=== PATIENT | male | born 1960 | race Caucasian/White ===

== ENCOUNTER 2018-08-12 05:24 | Emergency (ER) | payer MEDICARE, OTHER ==
[2018-08-12] MEDS ORDERED: Aspirin 325 mg EC Tablets PO STA (05:45)
--- NOTE | 2018-08-12 05:51 | C.PDOC ---
History Of Present Illness 58 year old male presents with PMHx of HTN to the ED c/o sudden onset mid sternal chest pain for the past 5 hours, patient states pain started while watching TV. Patient reports his pain is non exertional associated with SOB. Patient still smokes. Patient also c/o exacerbation of his acid reflux. Patient states ambulance initially took him to [facility], as per Patient "I was never evaluated there left and came here". Patient denies fever, chills, headache, visual changes, nausea, vomit, dizziness, rash, weakness, numbness. Time Seen by Provider: 08/12/18 05:40 Chief Complaint (Nursing): Shortness Of Breath History Per: Patient History/Exam Limitations: no limitations Onset/Duration Of Symptoms: Hrs (5) Current Symptoms Are (Timing): Still Present Reports Recently: Seen In ED ([facility] today left) Recent travel outside of the [place]: No Additional History Per: Patient Past Medical History Reviewed: Historical Data, Nursing Documentation, Vital Signs Vital Signs: Last Vital Signs Temp 98 F 08/12/18 05:36 Pulse 79 08/12/18 05:36 Resp 20 08/12/18 05:36 BP 154/79 H 08/12/18 05:36 Pulse Ox 97 08/12/18 05:36 - Medical History PMH: Asthma, HTN, Hypercholesterolemia Denies: Diabetes, Hepatitis, HIV, Seizures, Sexually Transmitted Disease Surgical History: No Surg Hx - [facility] Procedures DETOXIFICATION SERVICES FOR SUBSTANCE ABUSE TREATMENT (12/16/15) Family History: States: Unknown Family Hx - Social History Hx Tobacco Use: Yes Hx Alcohol Use: No Hx Substance Use: Yes - Immunization History Hx Tetanus Toxoid Vaccination: Yes Hx Influenza Vaccination: Yes Hx Pneumococcal Vaccination: No Review Of Systems Constitutional: Negative for: Fever, Chills Eyes: Negative for: Vision Change Cardiovascular: Positive for: Chest Pain. Negative for: Palpitations Respiratory: Positive for: Shortness of Breath. Negative for: Cough Gastrointestinal: Negative for: Nausea, Vomiting, Abdominal Pain, Diarrhea Skin: Negative for: Rash Neurological: Negative for: Weakness, Numbness, Headache, Dizziness Physical Exam - Physical Exam Appears: Non-toxic, No Acute Distress Skin: Normal Color, Warm, Dry Head: Atraumatic, Normacephalic Eye(s): bilateral: Normal Inspection Oral Mucosa: Moist Neck: Normal ROM, Supple Chest: Symmetrical, No Tenderness Cardiovascular: Rhythm Regular Respiratory: Normal Breath Sounds, No Rales, No Rhonchi, No Wheezing Gastrointestinal/Abdominal: Soft, No Tenderness, No Guarding, No Rebound Extremity: Bilateral: Atraumatic, Normal Color And Temperature, Normal ROM Neurological/Psych: Oriented x3, Normal Speech, Normal Cognition Gait: Steady ED Course And Treatment - Laboratory Results Result Diagrams: 08/12/18 05:51 08/12/18 05:51 ECG: Interpreted By Me, Viewed By Me ECG Rhythm: Sinus Rhythm Interpretation Of ECG: Normal axis, normal intervals Rate From EC (BPM) O2 Sat by Pulse Oximetry: 97 (ON RA) Pulse Ox Interpretation: Normal Reevaluation Time: 06:40 Reassessment Condition: Improved (PARTIAL IMPROVE S/P NG X 1.) - Physician Consult Information Time Consulting Physician Contacted: 06:40 Physician Contacted: Stevan Brock Outcome Of Conversation: C/F PMD WILL ADMIT Medical Decision Making Medical Decision Making: Plan: * EKG * Labs * Aspirin 325 mg PO * Morphine 2 mg IVP * Nitroglycerin 0.4 mg SL * BRANDI rule out Disposition Counseled Patient/Family Regarding: Studies Performed, Diagnosis - Disposition Disposition: HOSPITALIZED Disposition Time: 06:40 Condition: STABLE Forms: [facility] (Haitian) - POA Present On Arrival: None - Clinical Impression Clinical Impression: Chest pain - Scribe Statement The provider has reviewed the documentation as recorded by the Scribe Avelino Cash All medical record entries made by the Scribe were at my direction and personally dictated by me. I have reviewed the chart and agree that the record accurately reflects my personal performance of the history, physical exam, medical decision making, and the department course for this patient. I have also personally directed, reviewed, and agree with the discharge instructions and disposition.
[2018-08-12 05:53] LABS: BASO # 0.1 K/uL (0.0-0.2); BASO % 1.1 % (0.0-2.0); EOS # 0.4 K/uL (0.0-0.7); EOS % 7.4 % (0.0-4.0); LYMPH # 2.4 K/uL (1.0-4.3); LYMPH % 45.2 % (20.0-40.0); MONO # 0.3 K/uL (0.0-0.8); MONO % 6.3 % (0.0-10.0); NEUT # 2.1 K/uL (1.8-7.0); NRBC % 0.1 % (0.0-2.0); RBC 4.12 Mil/uL (4.40-5.90); WHITE BLOOD COUNT 5.3 K/uL (4.8-10.8)
[2018-08-12 06:21] LABS: ALB/GLOB RATIO 1.3 (1.0-2.1); ALBUMIN 4.5 g/dL (3.5-5.0); ALT/SGPT 24 U/L (21-72); AST/SGOT 29 U/L (17-59); BLOOD UREA NITROGEN 9 mg/dL (9-20); CALCIUM 8.8 mg/dl (8.6-10.4); GFR NON-AFRICAN AMERICAN > 60
[2018-08-12 07:45] VITALS: RESP 18
--- NOTE | 2018-08-12 08:31 | CP.PCM.HP ---
History of Present Illness - History of Present Illness History of Present Illness: Mr. Adame is a 58 year old male with a PMHx of hypertension, HSV I, and GERD who presents with complaints of 10/10, non-radiating, left-sided sharp chest pain that started at 2AM this morning while watching television and eating a h amburger. Associated with the chest pain is shortness of breath. He denies any provocating or relieving factors. He denies using any modalities to treat the pain. Patient does admit to snorting heroin yesterday. His pain was relieved after ASA, Morphine and Nitro in the ED. He denies Fevers, chills, nausea, vomiting, abdominal pain, or changes in bowel habits. Patient does admit to dysuria for 1 week. ROS: As stated above PMHx: As stated above PSHx: B/L inguinal hernia repair Allergies: NKDA SocialHx: tobacco use for 8 years, 6 cigarettes a day, Denies EtoH Use, Admitted to Heroin use FamHx: Unknown Meds: Valtrex (Unknown Dose), Norvasc 10 Daily, Strovite PMD: Dr. Patrick. Present on Admission - Present on Admission Any Indicators Present on Admission: No Review of Systems - Review of Systems Review of Systems: As per HPI Past Patient History - Infectious Disease Hx of Infectious Diseases: None - Past Social History Smoking Status: Heavy Smoker > 10 Cigarettes Daily - CARDIAC Hx Hypercholesterolemia: Yes Hx Hypertension: Yes - PULMONARY Hx Asthma: Yes - NEUROLOGICAL Hx Seizures: No - HEMATOLOGICAL/ONCOLOGICAL Hx Human Immunodeficiency Virus (HIV): No - MUSCULOSKELETAL/RHEUMATOLOGICAL Hx Musculoskeletal Disorders: Yes Hx Back Pain: Yes Hx Falls: No - GENITOURINARY/GYNECOLOGICAL Hx Sexually Transmitted Disorders: No - PSYCHIATRIC Hx Substance Use: Yes - SURGICAL HISTORY Hx Surgeries: No - ANESTHESIA Hx Anesthesia: No Meds Allergies/Adverse Reactions: Allergies Allergy/AdvReac Type Severity Reaction Status Date / Time No Known Allergies Allergy Verified 08/12/18 05:40 Physical Exam - Constitutional Appears: Well, Non-toxic, No Acute Distress - Head Exam Head Exam: ATRAUMATIC, NORMAL INSPECTION, NORMOCEPHALIC - Eye Exam Eye Exam: EOMI, Normal appearance - ENT Exam ENT Exam: Mucous Membranes Moist - Neck Exam Neck exam: Positive for: Normal Inspection. Negative for: Tenderness, Thyromegaly - Respiratory Exam Respiratory Exam: Clear to Auscultation Bilateral. absent: Accessory Muscle Use - Cardiovascular Exam Cardiovascular Exam: Bradycardia, REGULAR RHYTHM, +S1, +S2 - GI/Abdominal Exam GI & Abdominal Exam: Normal Bowel Sounds, Soft. absent: Tenderness - Extremities Exam Extremities exam: Positive for: normal capillary refill. Negative for: pedal edema - Neurological Exam Neurological exam: Alert, Oriented x3 - Psychiatric Exam Psychiatric exam: Normal Affect, Normal Mood Results - Vital Signs Recent Vital Signs: Last Vital Signs Temp 98 F 08/12/18 07:15 Pulse 52 L 08/12/18 07:15 Resp 18 08/12/18 07:15 BP 126/73 08/12/18 07:15 Pulse Ox 98 08/12/18 07:15 - Labs Result Diagrams: 08/12/18 05:51 08/12/18 05:51 Labs: Laboratory Results - last 24 hr 08/12/18 08/12/18 05:51 05:51 WBC 5.3 RBC 4.12 L Hgb 14.0 Hct 40.0 MCV 97.0 H MCH 34.0 H MCHC 35.0 RDW 13.0 Plt Count 258 MPV 7.0 L Neut % (Auto) 40.0 L Lymph % (Auto) 45.2 H Rolette % (Auto) 6.3 Eos % (Auto) 7.4 H Baso % (Auto) 1.1 Neut # (Auto) 2.1 Lymph # (Auto) 2.4 Rolette # (Auto) 0.3 Eos # (Auto) 0.4 Baso # (Auto) 0.1 Sodium 140 Potassium 4.1 Chloride 102 Carbon Dioxide 30 Anion Gap 13 BUN 9 Creatinine 0.8 Est GFR ( Amer) > 60 Est GFR (Non-Af Amer) > 60 Random Glucose 119 H Calcium 8.8 Total Bilirubin 0.7 AST 29 ALT 24 Alkaline Phosphatase 105 Troponin I < 0.0120 Total Protein 7.8 Albumin 4.5 Globulin 3.3 Albumin/Globulin Ratio 1.3 Assessment & Plan - Assessment and Plan (Free Text) Assessment: 58 year old male with a PMHx of hypertension, HSV I, and GERD admitted for chest pain r/o ACS. Plan: Chest Pain, R/O ACS -Serial BRANDI, Serial EKG -ECHO -Cardiology Consult -Lipid Panel, HgBA1C, Thyroid Studies. Proph Lovenox HHD.
[2018-08-12 10:19] VITALS: BP 128/81; PULSE 53; TEMP 98.1; O2SAT 100
[2018-08-12 10:26] LABS: BARBITURATES, UR NEGATIVE (NEGATIVE); BENZODIAZEPINES, UR NEGATIVE (NEGATIVE); PHENCYCLIDINE, UR NEGATIVE (NEGATIVE)
[2018-08-12 10:30] LABS: SQUAMOUS EPITHIAL < 1 /hpf (0-5); URINE BILIRUBIN NEGATIVE (NEGATIVE); URINE BLOOD NEGATIVE (NEGATIVE); URINE CLARITY Clear (Clear); URINE COLOR Yellow (YELLOW); URINE GLUCOSE (UA) NORMAL (Normal); URINE LEUKOCYTE ESTERASE NEG Leu/uL (Negative); URINE PROTEIN NEGATIVE (NEGATIVE); URINE UROBILINOGEN NORMAL mg/dL (0.2-1.0)
[2018-08-12 10:36] LABS: INR 1.1; PROTHROMBIN TIME 11.8 SECONDS (9.7-12.2)
[2018-08-12 11:04] LABS: OPIATES, UR POSITIVE (NEGATIVE)
--- NOTE | 2018-08-12 12:55 | CP.PCM.DIS ---
Provider - Provider Date of Admission: 08/12/18 Consults: Cardio - Grandhi Time Spent in preparation of Discharge (in minutes): 33 Hospital Course - Lab Results Lab Results: Most Recent Lab Values WBC 5.3 K/uL (4.8-10.8) 08/12/18 05:51 RBC 4.12 Mil/uL (4.40-5.90) L 08/12/18 05:51 Hgb 14.0 g/dL (12.0-18.0) 08/12/18 05:51 Hct 40.0 % (35.0-51.0) 08/12/18 05:51 MCV 97.0 fL (80.0-94.0) H 08/12/18 05:51 MCH 34.0 pg (27.0-31.0) H 08/12/18 05:51 MCHC 35.0 g/dL (33.0-37.0) 08/12/18 05:51 RDW 13.0 % (11.5-14.5) 08/12/18 05:51 Plt Count 258 K/uL (130-400) 08/12/18 05:51 MPV 7.0 fL (7.2-11.7) L 08/12/18 05:51 Neut % (Auto) 40.0 % (50.0-75.0) L 08/12/18 05:51 Lymph % (Auto) 45.2 % (20.0-40.0) H 08/12/18 05:51 Garvin % (Auto) 6.3 % (0.0-10.0) 08/12/18 05:51 Eos % (Auto) 7.4 % (0.0-4.0) H 08/12/18 05:51 Baso % (Auto) 1.1 % (0.0-2.0) 08/12/18 05:51 Neut # (Auto) 2.1 K/uL (1.8-7.0) 08/12/18 05:51 Lymph # (Auto) 2.4 K/uL (1.0-4.3) 08/12/18 05:51 Garvin # (Auto) 0.3 K/uL (0.0-0.8) 08/12/18 05:51 Eos # (Auto) 0.4 K/uL (0.0-0.7) 08/12/18 05:51 Baso # (Auto) 0.1 K/uL (0.0-0.2) 08/12/18 05:51 PT 11.8 SECONDS (9.7-12.2) 08/12/18 10:18 INR 1.1 08/12/18 10:18 APTT 28 SECONDS (21-34) 08/12/18 10:18 Sodium 140 mmol/L (132-148) 08/12/18 05:51 Potassium 4.1 mmol/L (3.6-5.2) 08/12/18 05:51 Chloride 102 mmol/L (98-107) 08/12/18 05:51 Carbon Dioxide 30 mmol/L (22-30) 08/12/18 05:51 Anion Gap 13 (10-20) 08/12/18 05:51 BUN 9 mg/dL (9-20) 08/12/18 05:51 Creatinine 0.8 mg/dL (0.8-1.5) 08/12/18 05:51 Est GFR ( Amer) > 60 08/12/18 05:51 Est GFR (Non-Af Amer) > 60 08/12/18 05:51 Random Glucose 119 mg/dL (75-110) H 08/12/18 05:51 Hemoglobin A1c 4.8 % (4.2-6.5) 08/12/18 08:43 Calcium 8.8 mg/dl (8.6-10.4) 08/12/18 05:51 Phosphorus 4.5 mg/dL (2.5-4.5) 08/12/18 08:43 Magnesium 2.0 mg/dL (1.6-2.3) 08/12/18 08:43 Total Bilirubin 0.7 mg/dL (0.2-1.3) 08/12/18 05:51 AST 29 U/L (17-59) 08/12/18 05:51 ALT 24 U/L (21-72) 08/12/18 05:51 Alkaline Phosphatase 105 U/L (38-126) 08/12/18 05:51 Troponin I < 0.0120 ng/mL (0.00-0.120) 08/12/18 05:51 Total Protein 7.8 g/dL (6.3-8.3) 08/12/18 05:51 Albumin 4.5 g/dL (3.5-5.0) 08/12/18 05:51 Globulin 3.3 gm/dL (2.2-3.9) 08/12/18 05:51 Albumin/Globulin Ratio 1.3 (1.0-2.1) 08/12/18 05:51 Triglycerides 99 mg/dL (0-149) 08/12/18 08:43 Cholesterol 199 mg/dL (0-199) 08/12/18 08:43 LDL Cholesterol Direct 124 mg/dL (0-129) 08/12/18 08:43 HDL Cholesterol 60 mg/dL (30-70) 08/12/18 08:43 Free T4 1.05 ng/dL (0.78-2.19) 08/12/18 10:04 TSH 3rd Generation 0.79 mIU/L (0.46-4.68) 08/12/18 10:04 Urine Color Yellow (YELLOW) 08/12/18 10:04 Urine Clarity Clear (Clear) 08/12/18 10:04 Urine pH 7.0 (5.0-8.0) 08/12/18 10:04 Ur Specific [place] 1.013 (1.003-1.030) 08/12/18 10:04 Urine Protein Negative mg/dL (NEGATIVE) 08/12/18 10:04 Urine Glucose (UA) Normal mg/dL (Normal) 08/12/18 10:04 Urine Ketones Negative mg/dL (NEGATIVE) 08/12/18 10:04 Urine Blood Negative (NEGATIVE) 08/12/18 10:04 Urine Nitrate Negative (NEGATIVE) 08/12/18 10:04 Urine Bilirubin Negative (NEGATIVE) 08/12/18 10:04 Urine Urobilinogen Normal mg/dL (0.2-1.0) 08/12/18 10:04 Ur Leukocyte Esterase Neg Denys/uL (Negative) 08/12/18 10:04 Urine WBC (Auto) < 1 /hpf (0-5) 08/12/18 10:04 Urine RBC (Auto) 1 /hpf (0-3) 08/12/18 10:04 Ur Squamous Epith Cells < 1 /hpf (0-5) 08/12/18 10:04 Urine Opiates Screen Positive (NEGATIVE) H 08/12/18 10:04 Urine Methadone Screen Negative (NEGATIVE) 08/12/18 10:04 Ur Barbiturates Screen Negative (NEGATIVE) 08/12/18 10:04 Ur Phencyclidine Scrn Negative (NEGATIVE) 08/12/18 10:04 Ur Amphetamines Screen Negative (NEGATIVE) 08/12/18 10:04 U Benzodiazepines Scrn Negative (NEGATIVE) 08/12/18 10:04 U Oth Cocaine Metabols Negative (NEGATIVE) 08/12/18 10:04 U Cannabinoids Screen Negative (NEGATIVE) 08/12/18 10:04 - Hospital Course Hospital Course: 58 year old male with PMHx of GERD, HSVI, and HTN admitted for chest pain r/O ACS. Initial troponins and EKG were negative. Patient eloped before getting transferred to telemetry for observation. Please see H&P for PE Discharge Exam - Head Exam Head Exam: ATRAUMATIC, NORMAL INSPECTION, NORMOCEPHALIC - Additional Findings Additional findings: - Constitutional Appears: Well, Non-toxic, No Acute Distress - Head Exam Head Exam: ATRAUMATIC, NORMAL INSPECTION, NORMOCEPHALIC - Eye Exam Eye Exam: EOMI, Normal appearance - ENT Exam ENT Exam: Mucous Membranes Moist - Neck Exam Neck exam: Positive for: Normal Inspection. Negative for: Tenderness, Thyromegaly - Respiratory Exam Respiratory Exam: Clear to Auscultation Bilateral. absent: Accessory Muscle Use - Cardiovascular Exam Cardiovascular Exam: Bradycardia, REGULAR RHYTHM, +S1, +S2 - GI/Abdominal Exam GI & Abdominal Exam: Normal Bowel Sounds, Soft. absent: Tenderness - Extremities Exam Extremities exam: Positive for: normal capillary refill. Negative for: pedal edema - Neurological Exam Neurological exam: Alert, Oriented x3 - Psychiatric Exam Psychiatric exam: Normal Affect, Normal Mood Discharge Plan - Follow Up Plan Condition: STABLE Disposition: ELOPEMENT - ER ONLY
--- NOTE | 2018-08-12 15:36 | RAD ---
Date of service: 08/12/2018 HISTORY: chest pain COMPARISON: None available. FINDINGS: LUNGS: Suspect minor bibasilar atelectasis PLEURA: No significant pleural effusion identified, no pneumothorax apparent. CARDIOVASCULAR: No significant aortic atherosclerotic calcification present. Heart size limits of normal.. No pulmonary vascular congestion. OSSEOUS STRUCTURES: No significant abnormalities. VISUALIZED UPPER ABDOMEN: Normal. OTHER FINDINGS: None. IMPRESSION: Suspect minor bibasilar atelectasis.
[2018-08-13] MEDS ORDERED: Multivitamin With Minerals Tab PO SCH (10:00)
--- NOTE | 2018-08-16 17:24 | CARD ---
APPROVED REPORT Date of service: 08/12/2018 EKG Measurement Heart [id number] <Conclusion> Normal sinus rhythm Normal ECG
== END 2018-08-12 11:41 | disposition left against medical advice (07) ==
LOC: C.ER 05:24 → C.9E 06:40 → UNDOADMOB 06:40 → C.ER 11:41
DX: R07.9 Chest pain, unspecified (principal)
CPT/HCPCS: 71045; 80053; 80061; 81001; 83036; 83735; 84100; 84439; 84443; 84484; 85025; 85610; 85730; 87086; 96374; 99285; G0480; J2270

== ENCOUNTER 2018-09-30 22:19 | Emergency (ER) | payer MEDICARE, OTHER ==
[2018-09-30 22:44] VITALS: PULSE 79; O2SAT 98
[2018-09-30] MEDS ORDERED: Sodium Chloride 0.9% 1,000 ML IV ONE (22:55)
[2018-09-30 23:14] LABS: SQUAMOUS EPITHIAL < 1 /hpf (0-5); URINE BACTERIA RARE (<OCC); URINE BILIRUBIN NEGATIVE (NEGATIVE); URINE BLOOD TRACE (NEGATIVE); URINE CLARITY Clear (Clear); URINE COLOR Yellow (YELLOW); URINE GLUCOSE (UA) NORMAL (Normal); URINE LEUKOCYTE ESTERASE NEG Leu/uL (Negative); URINE PROTEIN NEGATIVE (NEGATIVE); URINE UROBILINOGEN NORMAL mg/dL (0.2-1.0)
[2018-09-30 23:19] LABS: BASO % 0.8 % (0.0-2.0); EOS # 0.1 K/uL (0.0-0.7); EOS % 2.1 % (0.0-4.0); HEMOGLOBIN 13.4 g/dL (12.0-18.0); LYMPH # 1.5 K/uL (1.0-4.3); MEAN CELL VOLUME 95.8 fL (80.0-94.0); MEAN CORPUSCULAR HGB CONC 34.5 g/dL (33.0-37.0); MEAN PLATELET VOLUME 7.1 fL (7.2-11.7); MONO # 0.4 K/uL (0.0-0.8); MONO % 8.7 % (0.0-10.0); NEUT # 2.8 K/uL (1.8-7.0); NEUT % 57.4 % (50.0-75.0); NRBC % 0.1 % (0.0-2.0); RBC 4.06 Mil/uL (4.40-5.90); RED CELL DISTRIBUTION WIDTH 12.5 % (11.5-14.5); WHITE BLOOD COUNT 4.8 K/uL (4.8-10.8)
[2018-09-30 23:24] LABS: BARBITURATES, UR NEGATIVE (NEGATIVE); BENZODIAZEPINES, UR NEGATIVE (NEGATIVE); PHENCYCLIDINE, UR NEGATIVE (NEGATIVE)
[2018-09-30 23:28] LABS: ALB/GLOB RATIO 1.6 (1.0-2.1); ALBUMIN 4.3 g/dL (3.5-5.0); ALT/SGPT 17 U/L (21-72); AST/SGOT 22 U/L (17-59); BLOOD UREA NITROGEN 5 mg/dL (9-20); CALCIUM 8.7 mg/dl (8.6-10.4); GFR NON-AFRICAN AMERICAN > 60; LIPASE 30 U/L (23-300)
[2018-09-30 23:28] LABS: OPIATES, UR POSITIVE (NEGATIVE)
--- NOTE | 2018-09-30 23:31 | C.PDOC ---
History Of Present Illness 58 year old male presents to the ED for evaluation of abdominal pain, nausea, and vomiting for the past several hours that started after he took a combination of heroin and Xanax earlier today. He denies fever, chills, diarrhea, chest pain, palpitations, SOB. Time Seen by Provider: 09/30/18 22:32 Chief Complaint (Nursing): Abdominal Pain History Per: Patient History/Exam Limitations: no limitations Onset/Duration Of Symptoms: Hrs Current Symptoms Are (Timing): Still Present Quality Of Discomfort: "Pain" Associated Symptoms: Nausea, Vomiting, Other (abdominal pain). denies: Fever, Chills, Diarrhea Additional History Per: Patient Past Medical History Reviewed: Historical Data, Nursing Documentation, Vital Signs Vital Signs: Last Vital Signs Temp 98.5 F 09/30/18 22:23 Pulse 79 09/30/18 22:23 Resp 18 09/30/18 22:23 BP 151/88 H 09/30/18 22:23 Pulse Ox 98 09/30/18 22:23 - Medical History PMH: Asthma, HTN, Hypercholesterolemia Surgical History: No Surg Hx - [facility] Procedures DETOXIFICATION SERVICES FOR SUBSTANCE ABUSE TREATMENT (12/16/15) Family History: States: Unknown Family Hx - Social History Hx Tobacco Use: Yes Hx Alcohol Use: No Hx Substance Use: Yes - Immunization History Hx Tetanus Toxoid Vaccination: Yes Hx Influenza Vaccination: Yes Hx Pneumococcal Vaccination: No Review Of Systems Constitutional: Negative for: Fever, Chills Cardiovascular: Negative for: Chest Pain, Palpitations Respiratory: Negative for: Cough, Shortness of Breath Gastrointestinal: Positive for: Nausea, Vomiting, Abdominal Pain. Negative for: Diarrhea Genitourinary: Negative for: Dysuria, Hematuria Musculoskeletal: Negative for: Back Pain Skin: Negative for: Rash Physical Exam - Physical Exam Appears: Well, Non-toxic, No Acute Distress Skin: Normal Color, Warm, Dry Eye(s): bilateral: Normal Inspection Oral Mucosa: Moist Neck: Supple Lymphatic: Adenopathy Chest: Symmetrical Cardiovascular: Rhythm Regular Respiratory: Normal Breath Sounds, No Rales, No Rhonchi, No Wheezing Gastrointestinal/Abdominal: Bowel Sounds, Soft, Tenderness (mild epigastric TTP), No Guarding, No Rebound, Other ((-) [place], (-) McBurney's ) Back: No CVA Tenderness Neurological/Psych: Oriented x3 Gait: Steady ED Course And Treatment - Laboratory Results Result Diagrams: 09/30/18 23:13 09/30/18 23:13 O2 Sat by Pulse Oximetry: 98 (ON RA) Pulse Ox Interpretation: Normal Progress Note: Blood work, UA, UDS ordered and reviewed. Patient givne iV Ns bolus, IV pepcid and IV zofran. Reevaluation Time: 00:15 Reassessment Condition: Improved (on reassessment, patient is resting comfortably and states he feels better. On exam, abdomen is soft and nontend er. Patient is AAOx3, ambulating normally and clinically sober. Rxs for pepcid and zofran given. Patient instructed to follow up with PMD/clinic in 1-2 days, and he understands he should return to ED if symptoms worsen.) Disposition Counseled Patient/Family Regarding: Studies Performed, Diagnosis, Need For Followup, Rx Given - Disposition Referrals: Germán Irby MD [Medical Doctor] - Disposition: HOME/ ROUTINE Disposition Time: 00:15 Condition: STABLE Additional Instructions: FOLLOW UP WITH YOUR DOCTOR IN 1-2 DAYS USE MEDICATIONS NEEDED RETURN TO ER IF YOUR SYMPTOMS WORSEN Prescriptions: Famotidine [Pepcid] 20 mg PO BID PRN #15 tab PRN Reason: abdominal Ondansetron ODT [Zofran ODT] 1 odt PO BID PRN #15 odt PRN Reason: Nausea/Vomiting Instructions: Nausea and Vomiting, Adult (DC), Polysubstance Abuse (DC) Forms: [facility] (Finnish) Print Language: SWAZI - Clinical Impression Clinical Impression: Abdominal pain, Nausea, Vomiting, Substance abuse - Scribe Statement The provider has reviewed the documentation as recorded by the Genaro Bentley All medical record entries made by the Lavernibflor were at my direction and personally dictated by me. I have reviewed the chart and agree that the record accurately reflects my personal performance of the history, physical exam, medical decision making, and the department course for this patient. I have also personally directed, reviewed, and agree with the discharge instructions and disposition.
[2018-10-01 00:31] VITALS: BP 147/76; RESP 17; TEMP 98.1
== END 2018-10-01 00:31 | disposition home or self-care (01) ==
LOC: C.ER 22:19
DX: R10.9 Unspecified abdominal pain (principal); R11.2 Nausea with vomiting, unspecified; F19.10 Other psychoactive substance abuse, uncomplicated; I10 Essential (primary) hypertension; E78.00 Pure hypercholesterolemia, unspecified; F17.210 Nicotine dependence, cigarettes, uncomplicated
CPT/HCPCS: 80053; 81001; 83690; 85025; 96361; 96374; 96375; 99284; G0480; J2405; J7030

== ENCOUNTER 2018-12-10 02:44 | Emergency (ER) | payer MEDICARE, OTHER ==
--- NOTE | 2018-12-10 03:03 | C.PDOC ---
History Of Present Illness 58 year old male with PMHx of GERD presents to the ED c/o epigastric abdominal pain. Patient reports he took pepcid with no relief. Patient states his pain worsened tonight. Patient denies fever, chills, CP, SOB, palpitations, back p ain, nausea, vomit, diarrhea, rash, dysuria, hematuria. History Per: Patient History/Exam Limitations: no limitations Onset/Duration Of Symptoms: Days Current Symptoms Are (Timing): Still Present Location Of Pain/Discomfort: Epigastric Radiation Of Pain To:: None Quality Of Discomfort: "Pain" Associated Symptoms: denies: Nausea, Vomiting, Diarrhea, Urinary Symptoms Recent travel outside of the [place]: No Additional History Per: Patient Past Medical History Reviewed: Historical Data, Nursing Documentation, Vital Signs - Medical History PMH: Asthma, HTN, Hypercholesterolemia Denies: Diabetes, Hepatitis, HIV, Chronic Kidney Disease, Seizures, Sexually Transmitted Disease Surgical History: No Surg Hx - [facility] Procedures DETOXIFICATION SERVICES FOR SUBSTANCE ABUSE TREATMENT (12/16/15) Family History: States: Unknown Family Hx - Social History Hx Tobacco Use: Yes Hx Alcohol Use: No Hx Substance Use: Yes - Immunization History Hx Tetanus Toxoid Vaccination: Yes Hx Influenza Vaccination: Yes Hx Pneumococcal Vaccination: No Review Of Systems Constitutional: Negative for: Fever, Chills Cardiovascular: Negative for: Chest Pain Respiratory: Negative for: Shortness of Breath Gastrointestinal: Positive for: Abdominal Pain. Negative for: Nausea, Vomiting, Diarrhea Skin: Negative for: Rash Neurological: Negative for: Weakness, Numbness, Headache, Dizziness Physical Exam - Physical Exam Appears: Non-toxic, No Acute Distress Skin: Normal Color, Warm, Dry Head: Atraumatic, Normacephalic Eye(s): bilateral: Normal Inspection Oral Mucosa: Moist Neck: Normal ROM, Supple Chest: Symmetrical Cardiovascular: Rhythm Regular Respiratory: Normal Breath Sounds, No Rales, No Rhonchi, No Wheezing Gastrointestinal/Abdominal: Soft, Tenderness (epigastric), No Guarding, No Rebound Back: No CVA Tenderness Extremity: Normal ROM, No Tenderness, No Swelling Neurological/Psych: Oriented x3, Normal Speech, Normal Cognition Gait: Steady ED Course And Treatment - Laboratory Results Result Diagrams: 12/10/18 03:27 12/10/18 03:27 ECG: Interpreted By Me, Viewed By Me ECG Rhythm: Sinus Rhythm Rate From EC O2 Sat by Pulse Oximetry: 97 Pulse Ox Interpretation: Normal Disposition Counseled Patient/Family Regarding: Diagnosis - Disposition Referrals: Germán Irby MD [Primary Care Provider] - Disposition: HOME/ ROUTINE Disposition Time: 04:14 Condition: STABLE Prescriptions: Pantoprazole Sodium [Protonix] 40 mg PO DAILY #20 ect Sucralfate [Carafate] 1 gm PO BID #30 tab Instructions: Leon Diet, Gastritis (DC), Gastritis (ED), Gastroenteritis in Children (ED) Forms: [facility] (Nepalese) - POA Present On Arrival: None - Clinical Impression Clinical Impression: Acute gastritis - Scribe Statement The provider has reviewed the documentation as recorded by the Scribe Avelino Cash All medical record entries made by the Scribe were at my direction and personally dictated by me. I have reviewed the chart and agree that the record accurately reflects my personal performance of the history, physical exam, medical decision making, and the department course for this patient. I have also personally directed, reviewed, and agree with the discharge instructions and disposition.
[2018-12-10 03:08] VITALS: RESP 20; O2SAT 97
[2018-12-10] MEDS ORDERED: Sodium Chloride 0.9% 1,000 ML IV ONE (03:16)
[2018-12-10] MEDS ORDERED: Sodium Chloride 0.9% 1,000 ML ONE (03:22)
[2018-12-10 03:36] LABS: BASO % 0.7 % (0.0-2.0); EOS # 0.3 K/uL (0.0-0.7); EOS % 5.7 % (0.0-4.0); HEMOGLOBIN 13.1 g/dL (12.0-18.0); LYMPH # 1.9 K/uL (1.0-4.3); LYMPH % 33.7 % (20.0-40.0); MEAN CELL VOLUME 99.4 fL (80.0-94.0); MEAN CORPUSCULAR HEMOGLOBIN 33.2 pg (27.0-31.0); MEAN CORPUSCULAR HGB CONC 33.4 g/dL (33.0-37.0); MEAN PLATELET VOLUME 7.5 fL (7.2-11.7); MONO # 0.4 K/uL (0.0-0.8); MONO % 7.9 % (0.0-10.0); NEUT # 2.9 K/uL (1.8-7.0); RBC 3.94 Mil/uL (4.40-5.90); RED CELL DISTRIBUTION WIDTH 12.9 % (11.5-14.5); WHITE BLOOD COUNT 5.5 K/uL (4.8-10.8)
[2018-12-10 03:52] LABS: ALB/GLOB RATIO 1.7 (1.0-2.1); ALBUMIN 4.2 g/dL (3.5-5.0); ALT/SGPT 10 U/L (21-72); AST/SGOT 17 U/L (17-59); BLOOD UREA NITROGEN 10 mg/dL (9-20); CALCIUM 8.8 mg/dl (8.6-10.4); GFR NON-AFRICAN AMERICAN > 60; LIPASE 39 U/L (23-300)
[2018-12-10 03:53] VITALS: BP 142/70; PULSE 67; TEMP 98.2
--- NOTE | 2018-12-10 12:45 | CARD ---
APPROVED REPORT Date of service: 12/10/2018 EKG Measurement Heart [id number] <Conclusion> Normal sinus rhythm Normal ECG
== END 2018-12-10 04:28 | disposition home or self-care (01) ==
LOC: SUPCPDRO 02:44 → C.ER 02:44
DX: K29.00 Acute gastritis without bleeding (principal); I10 Essential (primary) hypertension; K21.9 Gastro-esophageal reflux disease without esophagitis; E78.00 Pure hypercholesterolemia, unspecified; F17.210 Nicotine dependence, cigarettes, uncomplicated
CPT/HCPCS: 80053; 83690; 85025; 93005; 96361; 96374; 99284; C9113; J7030